=== PATIENT | male | born 1965 | race Caucasian/White ===

== ENCOUNTER 2023-11-28 21:05 | Emergency (ER) | payer OTHER, SELFPAY ==
[2023-11-28 21:13] VITALS: BP 105/72
[2023-11-28 21:43] LABS: % Basophils 0.7 % (0-2); % Immature Granulocytes 0.4 % (0-0.5); % Lymphocytes 30.4 % (20.5-51.1); % Monocytes 9.8 % (1.7-9.3); % Neutrophils 56.7 % (42.2-75.2); Absolute Eosinophils 0.1 10^3/uL (0-0.7); Absolute Lymphocytes 1.4 10^3/uL (1.2-3.4); Absolute Monocytes 0.4 10^3/uL (0.1-0.6); Absolute Neutrophils 2.5 10^3/uL (1.4-6.5); Hematocrit 39.6 % (39.0-52.0); Hemoglobin 14.8 g/dL (13.0-18.0); Mean Corp Hgb Conc. 37.4 g/dL (33.0-37.0); Mean Corpuscular Hgb 34.4 pg (27.0-31.0); Mean Corpuscular Volume 92.1 fL (80.0-94.0); Mean Platelet Volume 9.8 fL (7.4-10.4); Nucleated Red Blood Cells % 0 % (-); Platelet Count 187 10^3/uL (130-400); Red Cell Dist. Width 12.2 % (11.5-14.5); White Blood Cell Count 4.5 10^3/uL (4.8-10.8)
[2023-11-28 22:05] LABS: Blood Urea Nitrogen 7 mg/dl (9-20); Carbon Dioxide 22 mmol/L (22-30); Chloride 97 mmol/L (98-107); Glucose 115 mg/dl (70-99); Sodium 135 mmol/L (135-145); eGFR > 60.00
[2023-11-29] VITALS (8 sets, daily range): BP systolic 119–140; BP diastolic 89–102; BMI 28.6
--- NOTE | 2023-11-29 00:26 | EDRN ---
For 5-6 months, pt says he is in a pattern where he sleeps [id number] and when he gets up, he starts vomiting despite nothing 'being in me.' Vomiting starts out clear then turns into blood. Saturday, pt was at a client meeting and felt nauseous at
the end so he went to restroom and 'there was blood like I have never seen, like half the sink was filled with clots.' Pt went to [employer] and got salad/fruit to make him feel better. Pt went into their bathroom and passed out, unknown how long
he was unconscious. Pt went to his mother's and told her he needed to go to ED so they went to [facility] and was kept for 3 days. Pt got out Saturday afternoon. Pt told he has a bleeding ulcer and hiatal hernia and bleeding gastritis and told to
return if symptoms return. Pt says he returned and was sitting in the waiting room and staff came out and reportedly told pt it would be better if he sought medical treatment elsewhere because triage was full. Pt says he is constantly nauseous and
he vomited prior to coming to this ED. Pt thinks his esophagus might be torn up from vomiting. Pt last vomited around 1900. Pt feels sob and has upper abdominal pain. Pt has urinary burning, no blood. Pt had diarrhea 2 days ago which was last
BM. No cp, fever/chills. Last alcohol intake was morning.
--- NOTE | 2023-11-29 00:57 | ED.GENMED ---
History of Present Illness
General
Chief Complaint: Vomiting Blood
Source: patient
Exam Limitations: none
Time Seen by Provider: 11/29/23 00:32
History of Present Illness
History of Present Illness:
This is a 58 year old male that comes in with c/o vomiting blood. States that for the past 6 months he has this phase were he can't go to bed before 12 midnight. States that he will then fall asleep around 12 midnight and awakes at 3am and he will
vomit right away. States that he has no appetite. States that he goes days without eating. States that he feels like he can't eat or hold anything down. States that when he vomits at 3am it is clear and then later it gets bloody States that on
Saturday he was in a meeting and he had to leave and went to the BR and vomited blood. States that he thought he was going to faint but he drove home. States that he stopped in at [employer] and went to there bathroom and he passed out there. States
that he then went to the ER at [facility]. States that he was admitted and just discharge yesterday . States that he was told that he has bleeding esophagitis and Ulcers. States that he had some bleeding this morning and he tried to eat
at 7pm but was unable and he vomited again. Patient went back to the hospital and they came out and told him that Triage was full and that he needed to go to another hospital so patient came here. States that he feels SOB, has abd pain nausea,
vomiting, diarrhea, headache, dizziness, and occasionally urinary burning. Denies any fever, chills, chest pain.
Past History
Past History
ED Past Medical History: Other (Concussion, Hiatal hernia, )
ED Past Surgical History: Orthopedic (Right shoulder surgery)
Social History
Tobacco: Other (Chews Tobacco)
Alcohol: Daily (Beers 10)
Personal:
Living: with family
Employment: Employed
Review of Systems
Review of Systems
All Other Systems: ROS reviewed and negative except as documented in HPI and ROS
Constitutional: Reports no symptoms; Denies fever or chills
EENT: Reports no symptoms
Respiratory: Reports trouble breathing; Denies cough
Cardiac: Reports no symptoms; Denies chest pain
ABD/GI: Reports abdominal pain, nausea, vomiting and diarrhea
: Reports dysuria (occasional); Denies frequency or urgency
Musculoskeletal: Reports no symptoms
Skin: Reports no symptoms
Neurological: Reports dizzy and headache
Psychiatric: Reports no symptoms
Phy Exam
General Physical Exam
General Presentation: well appearing and no apparent distress
General age: appears stated age
General Skin: warm and dry
General Habitus: normal
General Mental: alert
General Hydration: appears well hydrated
ENT Exam
ENT Exam: TM's normal, pharynx normal and neck supple
Eye Exam
Eye Exam: EOMI
Cardiovascular Exam
Cardiovascular Exam: regular rate/rhythm, no edema, no murmur and normal peripheral pulses
Pulmonary Exam
Pulmonary Exam: lungs clear, no respiratory distress, no rales, chest non tender, no crackles, no rhonchi, no wheezing and no cough
Gastrointestinal Exam
Gastrointestinal Exam: normal bowel sounds, soft, no organomegaly, no pulsatile mass, non distended and tender (Epigastric area with palpation)
Musculoskeletal Exam
Musculoskeletal Exam: full ROM and no edema
Skin Exam
Skin Exam: normal color, warm/dry, no rash and no petechia
Psychiatric Exam
Psychiatric Exam: normal mood/affect
Course
Orders/Labs/Results
Orders:
Orders
11/28/23 21:33
Type+Screen Urgent
Alcohol Urgent
Basic Metabolic Panel Urgent
CBC/With Diff [Complete Blood Count/With Diff] Urgent
11/29/23 00:57
Add On- LAB Urgent
Tests Added?: ALCOHOL
Pantoprazole [Protonix] 40 mg PO NOW STA
Sucralfate Suspension [Carafate Suspension] 1 gm PO NOW STA
Abnormal Lab Results
11/28/23
21:33
WBC 4.5 L 10^3/uL
(4.8-10.8)
RBC 4.30 L 10^6/uL
(4.70-6.10)
MCH 34.4 H pg
(27.0-31.0)
MCHC 37.4 H g/dL
(33.0-37.0)
Monocytes % 9.8 H %
(1.7-9.3)
Chloride 97 L mmol/L
(98-107)
BUN 7 L mg/dl
(9-20)
Glucose 115 H mg/dl
(70-99)
11/28/23 21:33
11/28/23 21:33
WBC slightly low. H/H normal. Glucose nonfasting, Alcohol 179.
Vital Signs
Initial and Last Documented VS:
Initial Vital Signs
Temp Pulse Resp BP Pulse Ox
98.4 F 95 19 105/72 98
11/28/23 21:13 11/28/23 21:13 11/28/23 21:13 11/28/23 21:13 11/28/23 21:13
Last Documented Vital Signs
Temp Pulse Resp BP Pulse Ox
98.4 F 67 20 134/95 99
11/28/23 21:13 11/29/23 02:00 11/29/23 02:00 11/29/23 02:00 11/29/23 01:00
MDM/Problems Addressed
Differential Diagnosis Includes:
Gastric ulcers, Esophagitis. Chronic alcohol abuse,
MDM/Problems Addressed:
This is a 58 year old male that comes in with c/o vomiting blood. Patient was just discharged from [facility] as he was admitted due to vomiting blood. Patient was told that he has an Ulcer and Esophagitis. Patient states that he was
discharged with Folic acid.
Will check labs. Explained to patient that he will not stop vomiting blood until he stops drinking. Patient is willing to go Inpatient for detox. Megan notified. Will give Protonix and Carafate.
Megan here to see patient.
Megan is looking for a bed for patient. Will discharge patient with a prescription for Protonix 40mg daily. Patient has not had any vomiting or bleeding here.
Chronic conditions affecting care:
Ulcers
Acute Exacerbation and/or Progression of Chronic Illness:
Ulcers
*Pulse Oximetry
Patient hypoxic: no
*EKG
Interpreted by ED Provider?: NA
Rate: EKG- N/A
*Hydraulic Pile Hammer Operator Interpretation
Rate: Hydraulic Pile Hammer Operator- N/A
*Critical Care Note
Total Time (30-74mins, 75-104mins- exclusive of procedures): Not Applicable
ED Attending Note
-
Portions of this chart may have been created with voice recognition software.� Occasional wrong word or��sound alike� substitutions may have occurred due to the inherent limitations of voice recognition software.
Discharge Plan
Departure
Patient Disposition: Other
Date of Disposition: 11/29/23
Time of Disposition: 03:44
Patient with high blood pressure during this ER visit?: Yes
Condition: Good
Covid-19: Not Applicable
Discharge Problem:
Alcohol abuse, Esophagitis
Instructions: Esophagitis, Alcohol Use Disorder (DC), BLOOD PRESSURE
Prescriptions:
New
pantoprazole [Protonix] 40 mg tablet,delayed release (DR/EC)
40 mg PO DAILY Qty: 30 0RF
No Action
escitalopram oxalate [Lexapro] 20 mg Tablet
20 mg PO DAILY
Referrals:
Stephanie Arguelles MD [Family Provider] -
Activity Restrictions/Additional Instructions:
As discussed, your blood work is normal. Your Hgb is normal. You have been given a prescription for Protonix to help coat your stomach lining. Please follow up as directed by Megan. IF YOU HAVE ANY OTHER CONCERNS PLEASE RETURN TO THE EMERGENCY ROOM
Interventions
Interventions:
*Risk Screen - Suicide Last Done: 11/29/23 00:24
*General Assessment Last Done: 11/29/23 00:24
*Neglect/Abuse Screening Last Done: 11/29/23 00:24
ED- Fall Risk Assessment Last Done: 11/29/23 00:39
*ED COVID-19 Vaccine History Last Done: 11/29/23 00:24
AB-Viskpr-Zttalpzsjm Assessment Last Done: 11/29/23 00:39
ED- Cardiac Assessment Last Done: 11/29/23 00:39
ED- Pulmonary Assessment Last Done: 11/29/23 00:39
Discharge Date and Time
Print Language: YORUBA
[2023-11-29] MEDS: CARAFATE SUSPENSION 1 GM PO (01:01)
[2023-11-29] MEDS: PROTONIX 40 MG PO (01:01)
[2023-11-29 02:45] LABS: Alcohol 179 mg/dl
[2023-11-29 10:19] LABS: Hematocrit 43.9 % (39.0-52.0); Hemoglobin 16.1 g/dL (13.0-18.0)
--- NOTE | 2023-11-29 10:25 | CON.GI ---
Addendum entered and electronically signed by Javy Chamorro MD 11/29/23 17:16:
I saw and examined the patient.
The MERCURY CELL CLEANER or PA's note was reviewed and I agree with the note.
Comment:
Is a 58-year-old man with a history of a hiatal hernia and GERD. He also has a recent history of hematemesis and did have an upper endoscopy that we were able to obtain. It does show erosive esophagitis in the distal esophagus which appears to be
LA grade D. Patient does admit to recent alcohol use. He currently is not vomiting and has no dysphagia.
abd: soft, nontender
impression
erosive esophagitis
gerd
plan:
PPI po bid
hgb stable
eventual outpatient egd in 8 weeks to ensure healing
no need for repeat egd at this point
Addendum entered and electronically signed by YUE Shipman 11/29/23 13:34:
11/27/23 CT thickening of esophagus with correlated with esophagitis
Addendum entered and electronically signed by YUE Shipman 11/29/23 13:31:
reviewed EGD 11/27/23- grade D esophagitis with stigmata of recent bleeding. Was seen starting at 30cm from incisors to lower third of esophagus 7 cm of severe eophagitis with oozing, no varices. large hiatal hernia ween with displacement of GEJ to
37 cm and narrowing at 43 cm from incision, diffuse erythema of mucosa with no bleeding noted on the stomach bx taken otherwise normal no gastric varicies, no bleeding in duodenal bulb.
Original Note:
Consultation
-
Date/Time Consultation Requested: 11/29/23 1000
Date/Time Consultation Performed: 11/29/23 1020
Requesting Provider: Gilbert Loaiza MD
Performing Provider: YUE Gong, Tenisha Chamorro MD
Reason for Consultation: hematemesis
Medical History
Chief Complaint / HPI
Chief Complaint: vomting blood
History of Present Illness:
Pt is a 58yo with hx hiatal hernia, concussion, shoulder surgery presents with hematemesis. On admission noted with hgb 14.8 and repeat 16.1 with normal BUN. In reviewing with patient he admits to increased ETOH use with 8-10 white claws daily as
admits to stress with divorce, depression and now living with mother. He has been waking up at 3 am with dry heaves daily. Then started to notice streaks of blood. He noted on Saturday some increased volume of blood with dark red and clots with
period of passing out in [employer] bathroom. He then had admission to [facility] this past week with CT, US and EGD completed. Pt unsure about details but admits to ? gastritis, ulceration, HH, and esophagitis. He was discharged 11/26
and noted further vomiting streaks of blood and returned to [place] but ER wait was very long and came to [place] for evaluation. He is due to go to ETOH rehab and asked to see for hematemesis.
Pt also admits to feeling of lump in throat with 20 lb wt loss with stress. He has some upper abdominal pain and noted some red blood a few weeks ago that has stopped possible hemorrhoid related with hx colonoscopy 3 years ago. No NSAID use
but admits to chew tobacco for many years.
Past Medical History
Past Medical History: Other (concussion, HH)
Past Surgical History: Orthopedic (right shoulder surgery )
Social History
Tobacco: Other (chew tobacco )
Alcohol: Daily (8-10 white claws )
Drug: None
Personal: (process of divorce )
Living: With Family (mother )
Employment: Employed
Family History
Family History: Reviewed & Not Pertinent
Allergies / Home Medications
Allergy/AdvReac Type Severity Reaction Status Date / Time
No Known Allergies Allergy Verified 11/28/23 21:19
�Medication �Instructions �Recorded
escitalopram oxalate 20 mg tablet 20 mg PO DAILY 11/29/23
(Lexapro)
pantoprazole 40 mg tablet,delayed 40 mg PO DAILY Gastrointestinal 11/29/23
release (Protonix) issue #30 tabs
Review of Systems
-
History Source: Patient
Constitutional: Reports Weight Loss and Fatigue
EENT: Reports No Symptoms
Respiratory: Reports No Symptoms
Abdomen/GI: Reports Nausea, Vomiting (hematemesis ), Diarrhea and Bloody Stools (few weeks ago now improved )
: Reports No Symptoms
Musculoskeletal: Reports No Symptoms
Skin: Reports No Symptoms
Neurological: Reports Weakness
Endocrine: Reports No Symptoms
Hematologic/Lymphatic: Reports Bleeding
Vital Signs
Temp Pulse Resp BP Pulse Ox
98.4 F 76 27 126/98 99
11/28/23 21:13 11/29/23 07:00 11/29/23 07:00 11/29/23 06:00 11/29/23 01:00
Physical Exam
Exam
General: Well Developed, Well Nourished and No Apparent Distress
HEENT: Normocephalic and Anicteric
Respiratory: Clear
Cardiac: Regular Rhythm
GI: Soft, Non Distended and Tender (mild epigastric pain )
Musculoskeletal: No Clubbing and No Cyanosis
Skin: Warm and Dry
Neuro: Awake, Alert and AO x 3
Psych: Calm
Results
WBC 4.5 10^3/uL (4.8-10.8) L 11/28/23 21:33
Hgb 16.1 g/dL (13.0-18.0) 11/29/23 10:09
Hct 43.9 % (39.0-52.0) 11/29/23 10:09
MCV 92.1 fL (80.0-94.0) 11/28/23 21:33
Plt Count 187 10^3/uL (130-400) 11/28/23 21:33
Absolute Neuts (auto) 2.5 10^3/uL (1.4-6.5) 11/28/23:
Sodium 135 mmol/L (135-145) 11/28/23:
Potassium mmol/L (3.5-5.1) 11/28/23:
Chloride 97 mmol/L (98-107) L 11/28/23:
Carbon Dioxide 22 mmol/L (22-30) 11/28/23:
BUN 7 mg/dl (9-20) L 11/28/23:
Creatinine 1.1 mg/dL (0.7-1.3) 11/28/23:
Calcium 9.0 mg/dl (8.4-10.2) 11/28/23:
Total Bilirubin Cancelled 11/28/23:
AST Cancelled 11/28/23:
ALT Cancelled 11/28/23:
Alkaline Phosphatase Cancelled 11/28/23:
Diagnostic Image Results:
Prior GI Procedures:
EGD: recent with ulceration
Colonoscopy: 3 years ago
Assessment / Plan
-
Pt is a 58yo with hx hiatal hernia, concussion, shoulder surgery presents with hematemesis. On admission noted with hgb 14.8 and repeat 16.1 with normal BUN. In reviewing with patient he admits to increased ETOH use with 8-10 white claws daily as
admits to stress with divorce, depression and now living with mother. He has been waking up at 3 am with dry heaves daily. Then started to notice streaks of blood. He noted on Saturday some increased volume of blood with dark red and clots with
period of passing out in [employer] bathroom. He then had admission to [facility] this past week with CT, US and EGD completed. Pt unsure about details but admits to ? gastritis, ulceration, HH, and esophagitis. He was discharged 11/26
and noted further vomiting streaks of blood and returned to [place] but ER wait was very long and came to [place] for evaluation. He is due to go to ETOH rehab and asked to see for hematemesis.
-hematemesis
-recent EGD 11/26 with 'gastritis, HH, ulceration'
-rectal bleeding a few weeks ago
-ETOH abuse
-insomnia
-recent stress with divorce/depression
-globus sensation with stress
PLAN:
Etiology of hematemesis related to PUD, esophagitis vs other
will try to obtain prior EGD completed 2 days at [place] to confirm no active GI bleed with visible ulcer, Esophageal varices etc with hx ETOH use to clear for discharge
hbg stable 16.1 with not bleeding since in ER with normal BUN
cont PPI, s/p Carafate given in ER
agree with rehab to treat ETOH abuse, depression etc
discussed stress reduction
OP follow up for any recurrent rectal bleeding
continue thiamine and folate on discharge pt states was advised meds on [place] discharge
-
-
Thank you for consultation and allowing me to participate in the patient's care. Please call the insulation machine operator GI physician during the after hours with any questions or concerns.
== END 2023-11-29 14:54 | disposition other institution (70) ==
LOC: EMR 21:05
PROVIDERS: Emergency Medicine; EMERGENCY PHYSICIAN Student in an Organized Health Care Education/Training Program; FAMILY PHYSICIAN Family Medicine
DX: K20.91 Esophagitis, unspecified with bleeding (principal); F10.10 Alcohol abuse, uncomplicated; R42 Dizziness and giddiness; R51.9 Headache, unspecified; R19.7 Diarrhea, unspecified; R06.02 Shortness of breath; K44.9 Diaphragmatic hernia without obstruction or gangrene; F17.220 Nicotine dependence, chewing tobacco, uncomplicated; Z87.820 Personal history of traumatic brain injury
CPT/HCPCS: 99285; 80048; 82077; 85014; 85018; 85025; 86850; 86900; 86901